=== PATIENT | female | born 1980 | race Caucasian/White ===

== ENCOUNTER 2017-01-09 18:39 | Emergency (ER) | payer MEDICAID, OTHER ==
[2017-01-09 19:11] VITALS: BP 134/87
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
== END 2017-01-09 20:43 | disposition home or self-care (01) ==
LOC: JP.ED 18:39
DX: Z77.21 Contact with and (suspected) exposure to potentially hazardous body fluids (principal); F17.210 Nicotine dependence, cigarettes, uncomplicated; Z98.890 Other specified postprocedural states
CPT/HCPCS: 36415; 80074; 87449; 99282; 99284